=== PATIENT | male | born 2000 | race Caucasian/White ===

== ENCOUNTER 2023-07-12 03:25 | Emergency (ER) | payer BC, MEDICAID ==
[2023-07-12] MEDS: ONDANSETRON ODT 4 MG TABLET TL STA (04:09)
[2023-07-12] MEDS: ONDANSETRON 4 MG/2 ML VIAL IVP STA (04:10)
[2023-07-12] MEDS: SODIUM CHLORIDE 0.9% 1,000 ML IV STA (04:11)
[2023-07-12] MEDS: KETOROLAC 15 MG/ML VIAL IVP STA (04:11)
[2023-07-12 04:16] LABS: BASOPHILS % (AUTO) 0.2 %; EOSINOPHILS % (AUTO) 0.1 %; HCT - HEMATOCRIT 44.7 % (42.0-52.0); LYMPHOCYTES # (AUTO) 1.8 10^3/uL (1.5-3.5); LYMPHOCYTES % (AUTO) 11.1 %; MEAN CORPUSCULAR HEMOGLOBIN 29.2 pg (27.0-31.0); MEAN CORPUSCULAR HGB CONC 33.6 g/dL (32.0-36.0); MEAN CORPUSCULAR VOLUME 87.1 fL (80.0-94.0); MEAN PLATELET VOLUME 10.4 fL (7.4-11.4); MONOCYTES # (AUTO) 0.6 10^3/uL (0.0-1.0); NEUTROPHILS # (AUTO) 13.3 10^3/uL (1.5-6.6); NEUTROPHILS % (AUTO) 84.3 %; PLT - PLATELET COUNT 374 10^3/uL (130-450); RED BLOOD COUNT 5.13 10^6/uL (4.70-6.10); RED CELL DISTRIBUTION WIDTH 11.7 % (12.0-15.0); WHITE BLOOD COUNT 15.8 x10^3/uL (4.8-10.8)
[2023-07-12 04:29] LABS: ALBUMIN 4.7 g/dL (3.2-5.5); ALBUMIN/GLOBULIN RATIO 1.7 (1.0-2.2); BILIRUBIN,TOTAL 0.5 mg/dL (0.2-1.0); CALCIUM 9.6 mg/dL (8.5-10.3); CREATININE 0.9 mg/dL (0.6-1.3); POTASSIUM 3.7 mmol/L (3.5-4.5); TOTAL PROTEIN 7.5 g/dL (6.4-8.9)
--- NOTE | 2023-07-12 04:44 | ED Physician Documentation ---
History of Present Illness - Stated complaint Stated Complaint: VOMITING/ABD PX - Chief complaint Chief Complaint: Abd Pain - History obtained from History obtained from: Patient - Additonal information Additional information: 22yM previously healthy and utd on childhood vaccines p/w epigastric abdominal pain and nbnb n/v X 1 day. denies fever, diarrhea, back pain, urinary sx. PD PAST MEDICAL HISTORY - Past Medical History Past Medical History: No Cardiovascular: None Respiratory: None GI: None : None HEENT: None Psych: None Musculoskeletal: None Derm: None - Past Surgical History General: Appendectomy - Present Medications Home Medications: Ambulatory Orders Medication Instructions Recorded Confirmed Ondansetron Odt [Zofran Odt] 4 mg TL Q6H PRN #10 tablet 07/12/23 - Allergies Allergies/Adverse Reactions: Allergies Allergy/AdvReac Type Severity Reaction Status Date / Time No Known Drug Allergies Allergy Verified 07/12/23 03:41 - Social History Does the pt smoke?: No Smoking Status: Never smoker Does the pt have substance abuse?: No - Immunizations Immunizations are current?: Yes PD ED PE NORMAL - Vitals Vital signs reviewed: Yes - General General: Alert and oriented X 3, No acute distress, Well developed/nourished - HEENT HEENT: Atraumatic, PERRL, EOMI, Other (dry MM) - Neck Neck: Supple, no meningeal sign - Cardiac Cardiac: RRR - Respiratory Respiratory: No respiratory distress, Clear bilaterally - Abdomen Abdomen: Non tender, Non distended, Other (discomfort in epigastrium to palpation) Results - Vitals Vitals: Vital Signs - 24 hr 07/12/23 03:33 Temperature 36.6 C Heart Rate 66 Respiratory 20 Rate Blood Pressure 143/83 H O2 Saturation 100 Oxygen O2 Source Room air - Labs Labs: Laboratory Tests 07/12/23 04:06 WBC 15.8 H RBC 5.13 Hgb 15.0 Hct 44.7 MCV 87.1 MCH 29.2 MCHC 33.6 RDW 11.7 L Plt Count 374 MPV 10.4 Neut # (Auto) 13.3 H Lymph # (Auto) 1.8 Lane # (Auto) 0.6 Eos # (Auto) 0.0 Baso # (Auto) 0.0 Absolute Nucleated RBC 0.00 Nucleated RBC % 0.0 PD Medical Decision Making - ED course ED course: 22yM presents to the ED with n/v and abdominal pain, likely viral enteritis. symptomatic care provided with improvement. cbc, abdominal panel, u/a ordered. WBC count 15.8. zofran sent to pharmacy. return precautions given. plan to f/u pcp. Departure - Departure Clinical Impression: Vomiting, Abdominal pain Instructions: ED Nausea Vomiting Prescriptions: Ondansetron Odt [Zofran Odt] 4 mg TL Q6H PRN #10 tablet PRN Reason: Nausea / Vomiting Comments: You were seen in the emergency department for vomiting and abdominal pain. Zofran was sent electronically to [facility] [place]. Please follow-up with your primary care provider and return to the emergency department if you have any new or worsening symptoms or other concerns. Forms: PCP List
[2023-07-12 05:05] LABS: BILIRUBIN,URINE NEGATIVE (NEGATIVE); GLUCOSE, URINE (UA) NEGATIVE (NEGATIVE); KETONES,URINE (UA) 40 mg/dL (NEGATIVE); LEUKOCYTE ESTERASE, URINE NEGATIVE (NEGATIVE); NITRITE,URINE NEGATIVE (NEGATIVE); OCCULT BLOOD,URINE NEGATIVE (NEGATIVE); PROTEIN,URINE NEGATIVE (NEGATIVE); UROBILINOGEN,URINE 0.2 (NORMAL) E.U./dL (NORMAL)
[2023-07-12 05:23] LABS: CLARITY,URINE CLEAR (CLEAR)
[2023-07-12] MEDS: FAMOTIDINE 20 MG/2 ML VIAL IVP STA (05:29)
[2023-07-12] MEDS: MORPHINE 2 MG/ML CARPUJECT IVP STA ×2 (05:35→05:36)
[2023-07-12 05:57] LABS: B. PARAPERTUSSIS- RESP PCR PAN NOT DETECTED; B. PERTUSSIS- RESP PCR PANEL NOT DETECTED; C. PNEUMONIAE- RESP PCR PANEL NOT DETECTED; CORONAVIRUS 229E-RESP PCR NOT DETECTED; CORONAVIRUS HKU1-RESP PCR NOT DETECTED; CORONAVIRUS NL63-RESP PCR NOT DETECTED; CORONAVIRUS OC43-RESP PCR NOT DETECTED; HUMAN METAPNEUMOVIRUS NOT DETECTED; INFLUENZA A- RESP PCR PANEL NOT DETECTED; INFLUENZA B - RESP PCR PANEL NOT DETECTED; M. PNEUMONIAE- RESP PCR PANEL NOT DETECTED; PARAINFLUENZA VIRUS 1 NOT DETECTED; PARAINFLUENZA VIRUS 2 NOT DETECTED; PARAINFLUENZA VIRUS 3 NOT DETECTED; PARAINFLUENZA VIRUS 4 NOT DETECTED; RHINOVIRUS/ENTEROVIRUS NOT DETECTED; RSV- RESP PCR PANEL NOT DETECTED; SARS-CoV-2 -RESP PCR PANEL NOT DETECTED
[2023-07-12 07:35] VITALS: BP 150/91; O2SAT 98
== END 2023-07-12 07:27 | disposition home or self-care (01) ==
LOC: ED 03:25
DX: R10.13 Epigastric pain (principal); R11.2 Nausea with vomiting, unspecified
CPT/HCPCS: 36415; 80053; 81001; 81003; 83690; 85025; 87086; 87633; 96374; 96375; 99283